=== PATIENT | male | born 1965 | race Native Hawaiian/Other Pacific Islander ===

== ENCOUNTER 2020-04-20 17:13 | Emergency (ER) | payer OTHER, MEDICAID, SELFPAY ==
[2020-04-20 17:19] VITALS: BP 158/88; PULSE 97; RESP 16; TEMP 36.5; O2SAT 100; BMI 25.8
--- NOTE | 2020-04-20 17:25 | DI.RAD.S_ITS ---
PROCEDURE: XR RIBS BI MIN 4V W CXR1V INDICATIONS: SOB, rib pain. History of chest trauma TECHNIQUE: 2 views of the left and right ribs were acquired, along with a single view chest. COMPARISON: None. FINDINGS: Surgical changes and devices: None. Bones and chest wall: Right left 5th rib fracture although radiographically the appearance is chronic. Lungs and pleura: No pleural effusions or pneumothorax. Lungs appear clear. Mediastinum: Mediastinal contours appear normal. Heart size is normal. IMPRESSION: No definite acute rib fracture radiographically identified. Chronic appearing right 5th rib fracture. Dictated by: Familia Astudillo M.D. on 04/20/2020 at 17:51 Approved by: Familia Astudillo M.D. on 04/20/2020 at 17:53
--- NOTE | 2020-04-20 21:37 | ED.SOB ---
HPI - SOB/Dyspnea General Chief Complaint: Shortness of Breath/Dyspnea Stated Complaint: SOB Time Seen by Provider: 04/20/20 21:37 Source: patient Mode of arrival: Ambulatory Limitations: no limitations History of Present Illness HPI Narrative: 54-year-old male former smoker with noncontributory medical history presents with a chief complaint of difficulty in breathing for approximately 1 month. He denies much in the way of provocation or palliation but states that her 22 takes a deep breath. He denies any history of blood clot recent injury or known cancer. He denies any fever chills nor runny nose, sore throat or cough. He denies any nausea, vomiting or diarrhea. MD Complaint: shortness of breath Onset (ago): month(s) Severity: moderate Consistency/Duration: constant Relieving factors: nothing Exacerbating factors: nothing Associated symptoms: denies other symptoms Treatment prior to arrival: none Related Data Home Medications Medication Instructions Recorded Confirmed acetaminophen 325 mg PO #0 09/05/16 aspirin 325 mg PO QDAY #0 09/05/16 ibuprofen [Advil Liqui-Gel] 200 mg PO #0 09/05/16 oxycodone-acetaminophen [Percocet] 1 tab PO Q4HP PRN #0 09/05/16 Previous Rx's Medication Instructions Recorded doxycycline hyclate 100 mg PO Q12H #20 cap 05/20/16 levofloxacin [Levaquin] 500 mg PO QDAY 10 Days #0 tab 05/22/16 clindamycin HCl 300 mg PO Q6H #28 cap 10/17/16 ketorolac 10 mg PO Q6H PRN #14 tab 04/20/20 Allergies Allergy/AdvReac Type Severity Reaction Status Date / Time No Known Drug Allergies Allergy Verified 04/20/20 17:23 Review of Systems Constitutional Constitutional: Denies chills, Denies fatigue, Denies fever(s), Denies frequent falls, Denies lethargy and Denies weakness Eyes Eyes: Denies change in vision, Denies eye discharge, Denies irritation and Denies loss of vision ENT Ears, Nose, Mouth, and Throat: Denies change in voice, Denies dizziness, Denies neck pain, Denies sore throat and Denies throat swelling Cardiovascular Cardiovascular: Reports chest pain, Denies irregular heart rhythm, Denies lightheadedness, Denies palpitations, Reports dyspnea, Denies dyspnea on exertion and Denies orthopnea Respiratory Respiratory: Denies cough, Reports dyspnea, Denies dyspnea on exertion and Denies wheezing Gastrointestinal Gastrointestinal: Denies abdominal pain, Denies change in bowel habits, Denies diarrhea, Denies nausea and Denies vomiting Musculoskeletal Musculoskeletal: Denies neck pain and Denies numbness Integumentary/Breasts Skin/Breast: Denies pruritus, Denies erythema, Denies rash and Denies wounds Neurologic Neurologic: Denies behavioral changes, Denies confusion, Denies dizziness, Denies frequent falls, Denies loss of vision, Denies numbness and Denies weakness Psychiatric Psychiatric: Denies anxiety, Denies behavioral changes, Denies confusion, Denies depression, Denies homicidal ideation and Denies suicidal ideation Endocrine Endocrine: Denies fatigue, Denies flushing and Denies palpitations Hematologic/Lymphatic Hematologic/Lymphatic: Denies easy bruising Allergic/Immunologic Allergic/Immunologic: Denies urticaria, Denies throat swelling and Denies wheezing Patient History Social History Smoking Status: Current every day smoker Smoking Status: Current every day smoker alcohol intake frequency: a few times a month Substance Use Type: marijuana Exam Narrative Exam Narrative: GENERAL: [54] year old patient appears stated age. Well-nourished, well-developed patient, in mild distress. HEAD: Atraumatic. Normocephalic. EYES: Pupils equal round and reactive. Extraocular motions intact. No scleral icterus. No injection or drainage. ENT: Nose without bleeding, purulent drainage. Throat without erythema, tonsillar hypertrophy or exudate. Airway patent. NECK: Trachea midline. Non tender CARDIOVASCULAR: Regular rate and rhythm without murmurs, gallops, or rubs. RESPIRATORY: Clear to auscultation. Breath sounds equal bilaterally. No wheezes, rales, or rhonchi. GASTROINTESTINAL: Abdomen soft, non-tender, nondistended. EXTREMITIES: No edema or joint tenderness. BACK: Nontender without deformity or crepitance. No flank tenderness. NEURO: AOx3. SKIN: No rash or erythema of visible areas Initial Vital Signs Initial Vital Signs: Vital Signs Temperature 97.7 F 04/20/20 17:19 Pulse Rate 97 H 04/20/20 17:19 Respiratory Rate 16 07/23/20 17:19 Blood Pressure 158/88 H 04/20/20 17:19 Pulse Oximetry 100 04/20/20 17:19 Course Orders Ordered: ED Orders 04/20/20 17:25 XR ribs BI min 4V w CXR1V Stat 04/20/20 21:48 Consult to Respiratory Therapy Evaluate & Treat EKG-12 Lead Stat 04/20/20 22:30 Basic Metabolic Panel Stat Complete Blood Count AUTO DIFF Stat D Dimer Stat Magnesium Stat Procalcitonin Stat Troponin & CK Cardiac Panel Stat 04/20/20 22:48 CT angio chest PE protocol Stat Discontinued Medications Ketorolac Tromethamine (Toradol) 15 mg IV NOW ONE Stop: 04/20/20 21:48 Last Admin: 04/20/20 22:19 Dose: Not Given Documented by: ALIVIA Ketorolac Tromethamine (Toradol) 60 mg IM NOW ONE Stop: 04/20/20 22:19 Last Admin: 04/20/20 22:40 Dose: 60 mg Documented by: CAL Vital Signs Vital signs: Vital Signs - 8 hr 04/21/20 00:41 Pulse Rate 88 Respiratory Rate 20 Blood Pressure 149/81 H Pulse Oximetry 96 MDM - SOB/Dyspnea Medical Records Attestation: I reviewed the patient's medical records. Lab Data Attestation: I reviewed the patient's lab results. Result diagrams: 04/20/20 22:30 04/20/20 22:30 Labs: Lab Results 04/20/20 04/20/20 04/20/20 Range/Units 22:30 22:30 22:30 WBC 14.5 H (4.5-11.0) X10^3/uL RBC 4.92 (4.5-5.9) X10^6/uL Hgb 11.7 L (13.5-17.5) g/dL Hct 36.0 L (41-53) % MCV 73.1 L (80-100) fL MCH 23.8 L (26-34) PG MCHC 32.5 (30-36) % RDW 18.6 H (11.6-14.8) % Plt Count 391 (150-400) X10^3/uL Neut % (Auto) 70.6 (50-75) % Lymph % (Auto) 15.5 L (25-40) % Ventura % (Auto) 10.9 (3-14) % Eos % (Auto) 2.5 (2-4) % Baso % (Auto) 0.5 (0-2) % Neut # (Auto) 42545 H (5561-5673) /uL Lymph # (Auto) 2200 (1921-8612) /uL Ventura # (Auto) 1600 H (0-900) /uL Eos # (Auto) 400 (0-450) /uL Baso # (Auto) 100 (0-100) /uL D-Dimer 973 H (<230) ng/mL Sodium 134 L (137-145) mmol/L Potassium 4.1 (3.4-5.1) mmol/L Chloride 99 (98-107) mmol/L Carbon Dioxide 28 (22-32) mmol/L BUN 15 (9-20) mg/dL Creatinine 0.70 (0.66-1.25) mg/dL Estimated GFR > 60.0 (>60) mL/min BUN/Creatinine Ratio 21.4 (6-22) Glucose 115 H (70-100) mg/dL Calcium 9.5 (8.4-10.2) mg/dL Magnesium 1.9 (1.6-2.3) mg/dL Total Creatine Kinase 49 L (55-170) U/L CK-MB (CK-2) TNP CK-MB (CK-2) Rel Index TNP Troponin I < 0.012 (0.01-0.034) ng/mL Procalcitonin (<0.5) ng/mL 04/20/20 Range/Units 22:30 WBC (4.5-11.0) X10^3/uL RBC (4.5-5.9) X10^6/uL Hgb (13.5-17.5) g/dL Hct (41-53) % MCV (80-100) fL MCH (26-34) PG MCHC (30-36) % RDW (11.6-14.8) % Plt Count (150-400) X10^3/uL Neut % (Auto) (50-75) % Lymph % (Auto) (25-40) % Ventura % (Auto) (3-14) % Eos % (Auto) (2-4) % Baso % (Auto) (0-2) % Neut # (Auto) (4725-2419) /uL Lymph # (Auto) (9430-9308) /uL Ventura # (Auto) (0-900) /uL Eos # (Auto) (0-450) /uL Baso # (Auto) (0-100) /uL D-Dimer (<230) ng/mL Sodium (137-145) mmol/L Potassium (3.4-5.1) mmol/L Chloride (98-107) mmol/L Carbon Dioxide (22-32) mmol/L BUN (9-20) mg/dL Creatinine (0.66-1.25) mg/dL Estimated GFR (>60) mL/min BUN/Creatinine Ratio (6-22) Glucose (70-100) mg/dL Calcium (8.4-10.2) mg/dL Magnesium (1.6-2.3) mg/dL Total Creatine Kinase (55-170) U/L CK-MB (CK-2) CK-MB (CK-2) Rel Index Troponin I (0.01-0.034) ng/mL Procalcitonin 0.68 H (<0.5) ng/mL Imaging Data Chest x-ray: Radiologist's Impression: Carlyle Mccarty 54 M 1965 [place] [address] XRay Report Signed Patient: Carlyle Mccarty [facility]#: [id number] : 1965Acct:[id number] Age/Sex: 54 / MDate of Service: 04/20/20 Loc: ED Accession Number: [id number] Procedure: XR ribs BI min 4V w CXR1V Ordering Provider: Chandan Gillespie MD PROCEDURE: XR RIBS BI MIN 4V W CXR1V INDICATIONS: SOB, rib pain. History of chest trauma TECHNIQUE: 2 views of the left and right ribs were acquired, along with a single view chest. COMPARISON: None. FINDINGS: Surgical changes and devices: None. Bones and chest wall: Right left 5th rib fracture although radiographically the appearance is chronic. Lungs and pleura: No pleural effusions or pneumothorax. Lungs appear clear. Mediastinum: Mediastinal contours appear normal. Heart size is normal. IMPRESSION: No definite acute rib fracture radiographically identified. Chronic appearing right 5th rib fracture. Dictated by: Familia Astudillo M.D. on 04/20/2020 at 17:51 Approved by: Familia Astudillo M.D. on 04/20/2020 at 17:53 CT scan - chest: Radiologist's Impression: NO PE, NO PTX, NO PNA Discharge Plan Departure Patient Disposition: Home Clinical Impression: Atypical chest pain Discharge Date/Time: 04/21/20 00:41 Instructions: DI for Atypical Chest Pain Activity Restrictions/Additional Instructions: *You have been diagnosed with [atypical chest pain] *What to do: *Take medications as directed: *Follow up with your primary care provider in 2-3 days, call for an appointment. Let them know you were seen in the Emergency Department and that we ask that you be seen in follow up. CT did note some changes in your liver which may be consistent with a chronic problem called cirrhosis. Your doctor can help you get this further evaluated *Return to ER if you should have any new, worsening or concerning symptoms, Prescriptions: New ketorolac 10 mg tablet 10 mg PO Q6H PRN (Reason: pain) Qty: 14 RF: 0 No Action doxycycline hyclate 100 MG capsule 100 mg PO Q12H Qty: 20 RF: 0 levofloxacin [Levaquin] 500 MG tablet 500 mg PO QDAY 10 Days Qty: 0 RF: 0 acetaminophen 325 MG tablet 325 mg PO Qty: 0 RF: 0 aspirin 325 MG tablet 325 mg PO QDAY Qty: 0 RF: 0 ibuprofen [Advil Liqui-Gel] 200 MG capsule 200 mg PO Qty: 0 RF: 0 oxycodone-acetaminophen [Percocet] 5 MG/325 MG tablet 1 tab PO Q4HP PRNQty: 0 RF: 0 clindamycin HCl 300 MG capsule 300 mg PO Q6H Qty: 28 RF: 0 Referrals: [facility] [Outside]
[2020-04-20] MEDS: KETOROLAC 60 MG/2 ML VIAL IM (22:40)
[2020-04-20 22:46] LABS: D Dimer 973 ng/mL (<230)
[2020-04-20 22:47] LABS: Add Manual Diff / Slide Review NO; BUN Creatinine Ratio 21.4 (6-22); Basophils Absolute Auto 100 /uL (0-100); Basophils Percent Auto 0.5 % (0-2); Blood Urea Nitrogen 15 mg/dL (9-20); Calcium 9.5 mg/dL (8.4-10.2); Carbon Dioxide 28 mmol/L (22-32); Chloride 99 mmol/L (98-107); Creatine Kinase 49 U/L (55-170); Eosinophils Absolute Auto 400 /uL (0-450); Eosinophils Percent Auto 2.5 % (2-4); Estimated Glomerular Filt Rate > 60.0 mL/min (>60); Glucose 115 mg/dL (70-100); HEMOLYSIS < 15 (0-50); Hemoglobin 11.7 g/dL (13.5-17.5); Lymphocytes Absolute Auto 2200 /uL (1100-4500); Lymphocytes Percent Auto 15.5 % (25-40); Magnesium 1.9 mg/dL (1.6-2.3); Mean Corpuscular HGB Conc 32.5 % (30-36); Mean Corpuscular Hemoglobin 23.8 PG (26-34); Mean Corpuscular Volume 73.1 fL (80-100); Monocytes Absolute Auto 1600 /uL (0-900); Monocytes Percent Auto 10.9 % (3-14); Neutrophils Absolute Auto 10300 /uL (1500-7000); Neutrophils Percent Auto 70.6 % (50-75); Platelet Count 391 X10^3/uL (150-400); Potassium 4.1 mmol/L (3.4-5.1); Red Blood Cell Count 4.92 X10^6/uL (4.5-5.9); Red Cell Distribution Width 18.6 % (11.6-14.8); Sodium 134 mmol/L (137-145); White Blood Cell Count 14.5 X10^3/uL (4.5-11.0)
--- NOTE | 2020-04-20 22:48 | DI.CT.S_ITS ---
PROCEDURE: CT ANGIO CHEST PE PROTOCOL INDICATIONS: SOB, chest pain, critical DDimer TECHNIQUE: After the administration of intravenous contrast, 2 mm thick sections acquired from the pulmonary apices to the posterior costophrenic angles. 3-dimensional maximum intensity projection (MIP) coronal and sagittal reformats were then acquired through the thorax. For radiation dose reduction, the following was used: automated exposure control, adjustment of mA and/or kV according to patient size. COMPARISON: None. FINDINGS: Image quality: Excellent. Pulmonary arteries: Pulmonary arteries are normal in size, and demonstrate no intraluminal filling defects to suggest central pulmonary embolism. Lungs and pleura: Atelectasis noted in the dependent portions of the lung bases. Emphysematous changes noted in the lung apices. No pleural effusions or pneumothorax. Central and peripheral airways are patent. Mediastinum: Heart size is normal, without pericardial effusion. No mediastinal or hilar adenopathy. Thoracic aorta is normal in caliber and enhancement. Esophagus is normal in caliber, without hiatal hernia. Bones and chest wall: No suspicious bony lesions. Ribs and thoracic spine appear intact throughout. Spine degenerative disc disease and facet arthropathy. Thyroid gland is normal. No axillary or supraclavicular adenopathy. Abdomen: Liver has nodular margins suggestive of hepatic cirrhosis. Trace ascites noted adjacent to the visualized liver. There are areas of heterogeneous enhancement in the right lobe of the liver. Enlarged peripancreatic and periportal lymph nodes noted. IMPRESSION: 1. No pulmonary embolus. 2. No lung consolidation or pleural effusions. 3. Cirrhotic appearing liver. Recommend correlation with clinical laboratory data. Multiple areas of heterogeneous enhancement involving the right lobe of the liver. Hepatic malignancy is not excluded. Recommend on MRI of the abdomen with and without contrast (hepatic protocol) for definitive characterization when clinically feasible. 3. Periportal and peripancreatic retroperitoneal lymphadenopathy which could be reactive or neoplastic including metastatic disease Dictated by: Ellie Mccray MD, PhD on 04/21/2020 at 7:11 Approved by: Ellie Mccray MD, PhD on 04/21/2020 at 7:15
[2020-04-20 22:59] LABS: Troponin I < 0.012 ng/mL (0.01-0.034)
[2020-04-20 23:39] LABS: Procalcitonin 0.68 ng/mL (<0.5)
[2020-04-21 00:41] VITALS: BP 149/81; PULSE 88; RESP 20; O2SAT 96
== END 2020-04-21 00:41 | disposition home or self-care (01) ==
PROVIDERS: Emergency Provider Emergency Medicine
DX: R07.89 Other chest pain (principal); R07.81 Pleurodynia; R06.02 Shortness of breath
CPT/HCPCS: 36415; 71111; 71275; 80048; 82550; 83735; 84145; 84484; 85025; 85379; 93005; 96372; 99284; J1885; Q9967

== ENCOUNTER → 2020-05-23 16:27 | Outpatient (CLI) | payer OTHER, MEDICAID, SELFPAY ==
[2020-05-23 16:50] LABS: Hematocrit 32.5 % (41-53); Hemoglobin 10.5 g/dL (13.5-17.5); Mean Corpuscular HGB Conc 32.3 % (30-36); Mean Corpuscular Hemoglobin 23.6 PG (26-34); Mean Corpuscular Volume 73.2 fL (80-100); Platelet Count 456 X10^3/uL (150-400); Red Blood Cell Count 4.44 X10^6/uL (4.5-5.9); Red Cell Distribution Width 19.8 % (11.6-14.8); White Blood Cell Count 17.5 X10^3/uL (4.5-11.0)
[2020-05-23 17:00] LABS: Reticulocyte Count, Percent 1.5 % (0.87-2.60)
[2020-05-23 17:07] LABS: Alanine Aminotransferase 155 IU/L (<50); Albumin 3.4 g/dL (3.5-5.0); Albumin Globulin Ratio 0.7 (1.0-2.8); Alkaline Phosphatase 800 U/L (38-126); Amylase 43 U/L (30-110); Aspartate Aminotransferase 323 IU/L (17-59); Bilirubin Unconjugated 0.4 mg/dL (0.0-1.1); Creatine Kinase 353 U/L (55-170); Globulin 4.9 g/dL (1.7-4.1); HEMOLYSIS < 15 (0-50); Iron 28 ug/dL (49-181); Lipase 122 U/L (23-300); Total Protein 8.3 g/dL (6.3-8.2)
[2020-05-23 17:15] LABS: Neutrophils Absolute Manual 13475 /uL (3000-5900); Total Cells Counted 100
[2020-05-23 17:16] LABS: Hypochromasia 1+; Microcytosis 1+
[2020-05-23 17:17] LABS: Percent Iron Saturation 10 % (20-50); Total Iron Binding Capacity 271 ug/dL (261-462); Transferrin 191 mg/dL (206-381)
[2020-05-23 17:37] LABS: TSH w/ Reflex to FT4 4.37 uIU/mL (0.47-4.68)
[2020-05-24 04:36] LABS: Ceruloplasmin 50.3 mg/dL (16.0-31.0)
[2020-05-24 05:38] LABS: Hepatitis B Surf Ab Qualitativ Non Reactive (.)
[2020-05-24 15:45] LABS: Ethanol (ETOH) < 10 mg/dL
[2020-05-24 16:36] LABS: ANA Screen, IFA Negative (.)
[2020-05-25 13:18] LABS: Smooth Muscle Antibody 12 Units (0-19)
[2020-05-25 17:01] LABS: Hep C Virus Ab w/Reflex Quant REACTIVE s/c (NEGATIVE)
[2020-05-25 17:42] LABS: Hepatitis B Surface Antigen NEGATIVE s/c (NEGATIVE)
[2020-05-26 04:39] LABS: Deamidated Gliadin IgA 6 units (0-19); Deamidated Gliadin IgG 2 units (0-19); IGA 484 mg/dL (90-386); t-Transglutaminase IgA <2 U/mL (0-3)
[2020-05-31 09:08] LABS: HCV Genotype 1b (.); HCV LOG 10 6.236 (.)
== END ==
PROVIDERS: PCP Internal Medicine; Referring Provider Internal Medicine; Visit Provider Internal Medicine
DX: D50.9 Iron deficiency anemia, unspecified (principal); D72.829 Elevated white blood cell count, unspecified; I10 Essential (primary) hypertension; K74.60 Unspecified cirrhosis of liver; R74.0 Nonspecific elevation of levels of transaminase and lactic acid dehydrogenase [LDH]
CPT/HCPCS: 36415; 80076; 80320; 82150; 82390; 82550; 82784; 83516; 83540; 83550; 83690; 84443; 85025; 85045; 86038; 86706; 86803; 87340; 87522

== ENCOUNTER 2020-05-26 14:05 | Emergency (ER) | payer OTHER, MEDICAID, SELFPAY ==
[2020-05-26] VITALS (7 sets, daily range): BP systolic 139–155; BP diastolic 70–89; PULSE 104–108; RESP 20–36; TEMP 36.9; O2SAT 98–100; BMI 25.0
--- NOTE | 2020-05-26 14:26 | ED_ITS ---
HPI - General Adult General Chief complaint: Shortness of Breath/Dyspnea Stated complaint: hard time breathing, stomach pains Time Seen by Provider: 05/26/20 14:26 History of Present Illness HPI narrative: 54-year-old gentleman with a history of hyperlipidemia, alcohol use disorder, liver cirrhosis, microcytic anemia and chronic leukocytosis hepatitis-C diagnosed 3 days ago and chronic shoulder pain presents with dyspnea and abdominal pain. He was seen by Dr. Villalta his newly established primary care physician 3 days ago and additional blood work was done including the serology to diagnose hepatitis-C. He was referred to gastroenterology earlier in the month and had a tele health visit but has not yet been seen and person. He states today he is having mid epigastric radiating into the right upper and middle quadrant pain. He complains that he is unable to void and he is co nstipated. He is obviously uncomfortable with tachypnea. He does state that he has been able to avoid alcohol for the last month. He continues to smoke tobacco and marijuana. He notes dyspnea chest pain radiating up from his distended abdomen, increasingly distended abdomen, chronic right upper quadrant abdominal pain, he reports no emesis and no black stools. He does report that he has been bruising easier and is fatigued. Patient apparently was taken to [facility] on May 13 by ambulance. At the time he had no specific complaints said he simply wanted to sleep no additional workup was done and patient was discharged Related Data Home Medications Medication Instructions Recorded Confirmed aspirin 81 mg tablet,delayed 81 mg PO DAILY 05/01/20 05/23/20 release Allergies Allergy/AdvReac Type Severity Reaction Status Date / Time lisinopril AdvReac Intermediate gas, Verified 05/26/20 14:34 cramping, dyspnea, near experience Review of Systems Review of Systems Narrative: Chronic right shoulder pain exacerbated with likely referred hepatic pain Remainder of review of systems including constitutional, ENT, cardiovascular, respiratory, GI, , musculoskeletal, skin, neurologic and psychiatric systems reviewed and are unremarkable except as noted in HPI. Patient History Medical History Cirrhosis of liver (Chronic) Essential hypertension (Chronic) Leukocytosis (Chronic) Microcytic anemia (Chronic) Surgical History S/P right rotator cuff repair (Acute) Family History Father Diabetes mellitus Stroke Mother Mini stroke Hypertension Hyperlipidemia Social History Smoking Status: Current every day smoker substance use type: marijuana Smoking Status: Current every day smoker alcohol intake frequency: a few times a month Substance Use Type: marijuana Exam Narrative Exam Narrative: General: Moderately disheveled and generally unwell appearing with tachypnea but not using accessory muscles and able to speak in full sentences HEENT: Moist mucous membranes, jaundiced sclera with reactive pupils, Neck: No JVD, supple Respiratory: Lungs are clear to auscultation, no wheezing no rales no rhonchi. Full and symmetrical air movement Cardiac: Tachycardia with Regular rhythm no murmurs no bruits Abdomen: Distended, tender along the entire liver edge with hepatomegaly, developing guarding but no rebound. Bedside ultrasound shows a bladder with at least 400 cc an it Skin: Warm and dry, multiple bruises, slight jaundice Neurologic: Grossly neurologically intact with no obvious asymmetries or abnormalities Extremities: No trauma, well perfused Psych: Cognitively appropriate with no evidence of auditory or visual halluci nations Initial Vital Signs Initial Vital Signs: Vital Signs Temperature 98.4 F 05/26/20 14:28 Pulse Rate 108 H 05/26/20 14:28 Respiratory Rate 20 05/26/20 14:28 Blood Pressure 148/89 H 05/26/20 14:28 Pulse Oximetry 100 05/26/20 14:28 Course Orders Ordered: Discontinued Medications Hydromorphone HCl (Dilaudid) 1 mg IV NOW ONE Stop: 05/26/20 17:41 Last Admin: 05/26/20 18:13 Dose: 1 mg Documented by: NISHI Sodium Chloride (Normal Saline 0.9%) 1,000 mls @ 1,000 mls/hr IV BOLUS ONE Stop: 05/26/20 18:40 Last Infusion: 05/26/20 19:03 Dose: 1,000 mls/hr Documented by: Admin: 05/26/20 18:13 Dose: 1,000 mls/hr Documented by: NISHI Lorazepam (Ativan) 0.5 mg IV NOW ONE Stop: 05/26/20 17:41 Last Admin: 05/26/20 18:13 Dose: 0.5 mg Documented by: NISHI Nicotine (Nicoderm) 14 mg TOP NOW ONE Stop: 05/26/20 17:41 Last Admin: 05/26/20 18:13 Dose: 14 mg Documented by: NISHI Vital Signs Vital signs: Vital Signs - 8 hr 05/26/20 14:28 05/26/20 14:30 05/26/20 15:12 Temperature 98.4 F Pulse Rate 108 H 104 H Respiratory Rate 20 22 Blood Pressure 148/89 H 139/87 155/74 H Pulse Oximetry 100 100 05/26/20 17:06 Temperature Pulse Rate 104 H Respiratory Rate Blood Pressure Pulse Oximetry Medical Decision Making Medical Records Medical records reviewed: Yes I reviewed the patient's medical records. Lab Data Lab results reviewed: Yes I reviewed the patient's lab results. Lab results narrative: 05/23 labs Leukocytosis at 17.5, thrombocytosis at 456, hemoglobin 10.5 Significantly elevated transaminases with AST 323 ALT 155 alkaline phosphatase 800, total protein 8.3 Hep C testing done and is positive Result diagrams: 05/26/20 14:28 05/26/20 15:37 Labs: Lab Results 05/26/20 05/26/20 05/26/20 Range/Units 14:28 14:28 14:28 WBC 18.7 H (4.5-11.0) X10^3/uL RBC 3.65 L (4.5-5.9) X10^6/uL Hgb 8.9 L (13.5-17.5) g/dL Hct 26.9 L (41-53) % MCV 73.7 L (80-100) fL MCH 24.4 L (26-34) PG MCHC 33.1 (30-36) % RDW 20.1 H (11.6-14.8) % Plt Count 622 H (150-400) X10^3/uL Neut % (Auto) 77.9 H (50-75) % Lymph % (Auto) 14.6 L (25-40) % [place] % (Auto) 7.2 (3-14) % Eos % (Auto) 0.1 L (2-4) % Baso % (Auto) 0.2 (0-2) % Neut # (Auto) 32698 H (5449-2961) /uL Lymph # (Auto) 2700 (2164-9663) /uL [place] # (Auto) 1300 H (0-900) /uL Eos # (Auto) 0 (0-450) /uL Baso # (Auto) 0 (0-100) /uL RBC Morphology See below Anisocytosis 1+ H Microcytosis 1+ H PT (10.1-12.7) SECONDS INR (0.9-1.3) APTT (26.4-36.2) SECONDS Sodium 130 L (137-145) mmol/L Potassium 6.0 H (3.4-5.1) mmol/L Chloride 97 L (98-107) mmol/L Carbon Dioxide 20 L (22-32) mmol/L BUN 32 H (9-20) mg/dL Creatinine 0.97 (0.66-1.25) mg/dL Estimated GFR > 60.0 (>60) mL/min BUN/Creatinine Ratio 33.0 H (6-22) Glucose 133 H (70-100) mg/dL Lactate 3.6 H (0.7-2.1) mmol/L Calcium 9.3 (8.4-10.2) mg/dL Total Bilirubin 1.1 (0.2-1.3) mg/dL AST 800 H (17-59) IU/L ALT 246 H (<50) IU/L Alkaline Phosphatase 883 H (38-126) U/L Total Protein 8.8 H (6.3-8.2) g/dL Albumin 3.6 (3.5-5.0) g/dL Globulin 5.2 H (1.7-4.1) g/dL Albumin/Globulin Ratio 0.7 L (1.0-2.8) Urine Color Urine Appearance Urine pH (4.5-8.0) Ur Specific [place] (1.000-1.035) Urine Protein (Negative) Urine Glucose (UA) (Negative) g/dL Urine Ketones (NEGATIVE) Urine Occult Blood (Negative) Urine Nitrate (Negative) Urine Bilirubin (NEGATIVE) Urine Urobilinogen (0.2) E.U./dL Ur Leukocyte Esterase (NEGATIVE) Urine RBC (0-5/HPF) Urine WBC (0-5/HPF) Urine Bacteria (None) Hyaline Casts (None) Ur Culture Indicated? 05/26/20 05/26/20 05/26/20 Range/Units 14:28 15:20 15:37 WBC (4.5-11.0) X10^3/uL RBC (4.5-5.9) X10^6/uL Hgb (13.5-17.5) g/dL Hct (41-53) % MCV (80-100) fL MCH (26-34) PG MCHC (30-36) % RDW (11.6-14.8) % Plt Count (150-400) X10^3/uL Neut % (Auto) (50-75) % Lymph % (Auto) (25-40) % [place] % (Auto) (3-14) % Eos % (Auto) (2-4) % Baso % (Auto) (0-2) % Neut # (Auto) (2533-3671) /uL Lymph # (Auto) (0502-3169) /uL [place] # (Auto) (0-900) /uL Eos # (Auto) (0-450) /uL Baso # (Auto) (0-100) /uL RBC Morphology Anisocytosis Microcytosis PT 15.1 H (10.1-12.7) SECONDS INR 1.3 (0.9-1.3) APTT 30 (26.4-36.2) SECONDS Sodium (137-145) mmol/L Potassium 5.7 H (3.4-5.1) mmol/L Chloride (98-107) mmol/L Carbon Dioxide (22-32) mmol/L BUN (9-20) mg/dL Creatinine (0.66-1.25) mg/dL Estimated GFR (>60) mL/min BUN/Creatinine Ratio (6-22) Glucose (70-100) mg/dL Lactate (0.7-2.1) mmol/L Calcium (8.4-10.2) mg/dL Total Bilirubin (0.2-1.3) mg/dL AST (17-59) IU/L ALT (<50) IU/L Alkaline Phosphatase (38-126) U/L Total Protein (6.3-8.2) g/dL Albumin (3.5-5.0) g/dL Globulin (1.7-4.1) g/dL Albumin/Globulin Ratio (1.0-2.8) Urine Color Yellow Urine Appearance Clear Urine pH 5.0 (4.5-8.0) Ur Specific [place] >=1.030 H (1.000-1.035) Urine Protein Trace H (Negative) Urine Glucose (UA) Negative (Negative) g/dL Urine Ketones Negative (NEGATIVE) Urine Occult Blood Negative (Negative) Urine Nitrate Negative (Negative) Urine Bilirubin Negative (NEGATIVE) Urine Urobilinogen 0.2 (0.2) E.U./dL Ur Leukocyte Esterase Negative (NEGATIVE) Urine RBC None seen (0-5/HPF) Urine WBC None seen (0-5/HPF) Urine Bacteria None seen (None) Hyaline Casts 5-10/lpf (None) Ur Culture Indicated? Cult not indicated 05/26/20 Range/Units 17:07 WBC (4.5-11.0) X10^3/uL RBC (4.5-5.9) X10^6/uL Hgb (13.5-17.5) g/dL Hct (41-53) % MCV (80-100) fL MCH (26-34) PG MCHC (30-36) % RDW (11.6-14.8) % Plt Count (150-400) X10^3/uL Neut % (Auto) (50-75) % Lymph % (Auto) (25-40) % [place] % (Auto) (3-14) % Eos % (Auto) (2-4) % Baso % (Auto) (0-2) % Neut # (Auto) (1678-8691) /uL Lymph # (Auto) (7933-8886) /uL [place] # (Auto) (0-900) /uL Eos # (Auto) (0-450) /uL Baso # (Auto) (0-100) /uL RBC Morphology Anisocytosis Microcytosis PT (10.1-12.7) SECONDS INR (0.9-1.3) APTT (26.4-36.2) SECONDS Sodium (137-145) mmol/L Potassium (3.4-5.1) mmol/L Chloride (98-107) mmol/L Carbon Dioxide (22-32) mmol/L BUN (9-20) mg/dL Creatinine (0.66-1.25) mg/dL Estimated GFR (>60) mL/min BUN/Creatinine Ratio (6-22) Glucose (70-100) mg/dL Lactate 2.8 H (0.7-2.1) mmol/L Calcium (8.4-10.2) mg/dL Total Bilirubin (0.2-1.3) mg/dL AST (17-59) IU/L ALT (<50) IU/L Alkaline Phosphatase (38-126) U/L Total Protein (6.3-8.2) g/dL Albumin (3.5-5.0) g/dL Globulin (1.7-4.1) g/dL Albumin/Globulin Ratio (1.0-2.8) Urine Color Urine Appearance Urine pH (4.5-8.0) Ur Specific [place] (1.000-1.035) Urine Protein (Negative) Urine Glucose (UA) (Negative) g/dL Urine Ketones (NEGATIVE) Urine Occult Blood (Negative) Urine Nitrate (Negative) Urine Bilirubin (NEGATIVE) Urine Urobilinogen (0.2) E.U./dL Ur Leukocyte Esterase (NEGATIVE) Urine RBC (0-5/HPF) Urine WBC (0-5/HPF) Urine Bacteria (None) Hyaline Casts (None) Ur Culture Indicated? 04/21/2020 Chest CTA FINDINGS: Image quality: Excellent. Pulmonary arteries: Pulmonary arteries are normal in size, and demonstrate no intraluminal filling defects to suggest central pulmonary embolism. Lungs and pleura: Atelectasis noted in the dependent portions of the lung bases. Emphysematous changes noted in the lung apices. No pleural effusions or pneumothorax. Central and peripheral airways are patent. Mediastinum: Heart size is normal, without pericardial effusion. No mediastinal or hilar adenopathy. Thoracic aorta is normal in caliber and enhancement. Esophagus is normal in caliber, without hiatal hernia. Bones and chest wall: No suspicious bony lesions. Ribs and thoracic spine appear intact throughout. Spine degenerative disc disease and facet arthropathy. Thyroid gland is normal. No axillary or supraclavicular adenopathy. Abdomen: Liver has nodular margins suggestive of hepatic cirrhosis. Trace ascites noted adjacent to the visualized liver. There are areas of heterogeneous enhancement in the right lobe of the liver. Enlarged peripancreatic and periportal lymph nodes noted. IMPRESSION: 1. No pulmonary embolus. 2. No lung consolidation or pleural effusions. 3. Cirrhotic appearing liver. Recommend correlation with clinical laboratory data. Multiple areas of heterogeneous enhancement involving the right lobe of the liver. Hepatic malignancy is not excluded. Recommend on MRI of the abdomen with and without contrast (hepatic protocol) for definitive characterization when clinically feasible. 3. Periportal and peripancreatic retroperitoneal lymphadenopathy which could be reactive or neoplastic including metastatic disease Dictated by: Ellie Mccray MD, PhD on 04/21/2020 at 7:11 Imaging Data Chest x-ray: Radiologist's Impression: FINDINGS: Surgical changes and devices: None. Lungs and pleura: The lungs are hypoexpanded. Streaky atelectasis in the right perihilar lung and bilateral lung bases. No focal consolidation. No pleural effusion or pneumothorax. Mediastinum: Mediastinal contours are normal. Heart size is normal. Bones and chest wall: No suspicious bony abnormalities. Soft tissues appear unremarkable. IMPRESSION: Hypoexpanded lungs with atelectasis. No acute finding. Dictated by: Justin Head M.D. on 05/26/2020 at 15:10 CT scan - abdomen/pelvis: Radiologist's Impression: FINDINGS: Image quality: Excellent. ABDOMEN: Lung bases: Pectus is present at the right lung base. No pleural effusion. Heart is normal size. There is a moderate-sized hiatal hernia. Solid organs: Multiple hypodense lesions are visualized throughout the liver. The lesions at the edge of the hepatic capsule have an exophytic appearance. The central bile duct at the level of the ampulla appears nondilated; however more superiorly and within the liver there is likely severe bile duct dilatation. A transition point is not well characterized. The gallbladder is mildly contracted and hyperdense sugges ting the presence of sludge or vicarious excretion of contrast. No adrenal nodules. The kidneys demonstrate symmetric size and enhancement. No hydronephrosis. The pancreas demonstrates normal size and enhancement. The spleen demonstrates normal size and enhancement. Enhancing soft tissue is noted along the inferior margin of the liver suggesting peritoneal carcinomatosis. There is a small amount of low-density ascites within the abdomen and pelvis. Peritoneum and bowel: Bowel loops demonstrate normal wall thickness and caliber. The appendix is thin walled and gas filled. No free fluid or air. Nodes and vessels: No retroperitoneal or mesenteric adenopathy by size criteria. Aorta and inferior vena cava are normal in size. There are scattered atheromatous calcifications throughout the aorta and iliac arteries bilaterally. Miscellaneous: No ventral hernias. PELVIS: Genitourinary: Bladder wall thickness is normal. Miscellaneous: No inguinal hernias or adenopathy. Bones: No suspicious bony lesions. No vertebral body compression fractures. IMPRESSION: 1. Innumerable hypodense mass lesions throughout the liver suspicious for diffuse hepatic metastasis. 2. Probable biliary obstruction within the midportion of the extrahepatic bile duct. No discrete mass or stone is visualized centrally. 3. Findings suspicious for peritoneal carcinomatosis at the inferior margin of the liver. Please note, differential considerations include hepatocellular carcinoma, biliary neoplasm, pancreatic adenocarcinoma, and metastatic colonic neoplasm. If c linically indicated, a hepatic lesion is likely amenable to ultrasound-guided percutaneous biopsy. These findings were discussed with Dr. Cody at 3:54 p.m. PST on May 26, 2020. Dictated by: Linda Tay M.D. on 05/26/2020 at 14:47 ECG Data Attestation: I personally reviewed and interpreted this ECG as follows: Interpretation: Sinus tachycardia at 107 Normal intervals, normal axis No acute ischemic changes MDM Narrative Medical decision making narrative: 54-year-old gentleman with hepatitis-C hepatomegaly cirrhosis history of alcohol use disorder hypertension now reestablishing care. Labs reviewed his white count continues to increase H&H continue to decrease and his thrombo cytosis is worse as well. Moderate ascites seen on bedside ultrasound along with urinary distention and acute urinary retention. Will have a Multani placed and see if this helps with some of the abdominal pain he is experiencing while were waiting for chemistries to return Hyperkalemia at 6.0 with normal renal function and no acute EKG changes. Repeat lab is 5.7 5:07 Care is reviewed with Dr Lopez, oncology to seek his recommendations on next steps in management for this unfortunate gentleman. His recommendation is hos pitalization for facilitated workup and directed biopsy. If patient is able to be admitted at [facility] serum tumor markers will be ordered by Dr. Reddy and he will see the patient after biopsy has been done 5:37 reviewed concerns and plan with patient and his sister. Questions were answered. Requested help with pain concern we do that. Also wanted to go out to smoke offered anxiolytics as well as a nicotine patch. Discussed code status. If not entirely clear that he understands questions and concepts. Initially he says he would not want to have CPR and would want to occur naturally. When reviewing to clarify, he says that he would want to have chest compressions done. At this time until we can fully clarify is actually understanding, we will leave him as a full code. When we have bed number BLS transport will be arranged Discharge Plan Departure Patient Disposition: [facility] Clinical Impression: Abdominal carcinomatosis, Cancer, metastatic to liver Hepatitis C Qualifiers: Viral hepatitis chronicity: acute Hepatic coma status: without hepatic coma Qualified Code(s): B17.10 - Acute hepatitis C without hepatic coma Cirrhosis of liver Qualifiers: Hepatic cirrhosis type: unspecified hepatic cirrhosis Ascites presence: with ascites Qualified Code(s): K74.60 - Unspecified cirrhosis of liver Discharge Date/Time: 05/26/20 19:06 Prescriptions: No Action aspirin 81 mg tablet,delayed release (DR/EC) 81 mg PO DAILY RF: 0 Referrals: Chandan Villalta MD [Primary Care Provider] -
--- NOTE | 2020-05-26 14:52 | DI.RAD.S_ITS ---
PROCEDURE: XR CHEST 2V INDICATIONS: shortness of breath TECHNIQUE: 2 views of the chest were acquired. COMPARISON: [facility], CT, CT ANGIO CHEST PE PROTOCOL, 04/20/2020, 22:47. FINDINGS: Surgical changes and devices: None. Lungs and pleura: The lungs are hypoexpanded. Streaky atelectasis in the right perihilar lung and bilateral lung bases. No focal consolidation. No pleural effusion or pneumothorax. Mediastinum: Mediastinal contours are normal. Heart size is normal. Bones and chest wall: No suspicious bony abnormalities. Soft tissues appear unremarkable. IMPRESSION: Hypoexpanded lungs with atelectasis. No acute finding. Dictated by: Justin Head M.D. on 05/26/2020 at 15:10 Approved by: Justin Head M.D. on 05/26/2020 at 15:11
[2020-05-26 14:59] LABS: Add Manual Diff / Slide Review NO; Basophils Absolute Auto 0 /uL (0-100); Basophils Percent Auto 0.2 % (0-2); Eosinophils Absolute Auto 0 /uL (0-450); Eosinophils Percent Auto 0.1 % (2-4); Hematocrit 26.9 % (41-53); Hemoglobin 8.9 g/dL (13.5-17.5); Lymphocytes Absolute Auto 2700 /uL (1100-4500); Lymphocytes Percent Auto 14.6 % (25-40); Mean Corpuscular HGB Conc 33.1 % (30-36); Mean Corpuscular Hemoglobin 24.4 PG (26-34); Mean Corpuscular Volume 73.7 fL (80-100); Monocytes Absolute Auto 1300 /uL (0-900); Monocytes Percent Auto 7.2 % (3-14); Neutrophils Absolute Auto 14600 /uL (1500-7000); Neutrophils Percent Auto 77.9 % (50-75); Platelet Count 622 X10^3/uL (150-400); Red Blood Cell Count 3.65 X10^6/uL (4.5-5.9); Red Cell Distribution Width 20.1 % (11.6-14.8); White Blood Cell Count 18.7 X10^3/uL (4.5-11.0)
[2020-05-26 15:04] LABS: Alanine Aminotransferase 246 IU/L (<50); Albumin 3.6 g/dL (3.5-5.0); Albumin Globulin Ratio 0.7 (1.0-2.8); Alkaline Phosphatase 883 U/L (38-126); Bilirubin Total 1.1 mg/dL (0.2-1.3); Blood Urea Nitrogen 32 mg/dL (9-20); Calcium 9.3 mg/dL (8.4-10.2); Carbon Dioxide 20 mmol/L (22-32); Chloride 97 mmol/L (98-107); Estimated Glomerular Filt Rate > 60.0 mL/min (>60); Globulin 5.2 g/dL (1.7-4.1); Glucose 133 mg/dL (70-100); HEMOLYSIS < 15 (0-50); Sodium 130 mmol/L (137-145); Total Protein 8.8 g/dL (6.3-8.2)
[2020-05-26 15:05] LABS: Lactate (Lactic Acid) 3.6 mmol/L (0.7-2.1)
[2020-05-26 15:12] LABS: Aspartate Aminotransferase 800 IU/L (17-59)
--- NOTE | 2020-05-26 15:17 | DI.CT.S_ITS ---
PROCEDURE: CT ABDOMEN PELVIS W CON INDICATIONS: hepatomegly, abdominal pain TECHNIQUE: After the administration of intravenous contrast, 5 mm thick sections acquired from the diaphragm to the symphysis. 5 mm coronal and sagittal reformats were acquired. For radiation dose reduction, the following was used: automated exposure control, adjustment of mA and/or kV according to patient size. COMPARISON: [facility], CT, CT ANGIO CHEST PE PROTOCOL, 04/20/2020, 22:47. FINDINGS: Image quality: Excellent. ABDOMEN: Lung bases: Pectus is present at the right lung base. No pleural effusion. Heart is normal size. There is a moderate-sized hiatal hernia. Solid organs: Multiple hypodense lesions are visualized throughout the liver. The lesions at the edge of the hepatic capsule have an exophytic appearance. The central bile duct at the level of the ampulla appears nondilated; however more superiorly and within the liver there is likely severe bile duct dilatation. A transition point is not well characterized. The gallbladder is mildly contracted and hyperdense suggesting the presence of sludge or vicarious excretion of contrast. No adrenal nodules. The kidneys demonstrate symmetric size and enhancement. No hydronephrosis. The pancreas demonstrates normal size and enhancement. The spleen demonstrates normal size and enhancement. Enhancing soft tissue is noted along the inferior margin of the liver suggesting peritoneal carcinomatosis. There is a small amount of low-density ascites within the abdomen and pelvis. Peritoneum and bowel: Bowel loops demonstrate normal wall thickness and caliber. The appendix is thin walled and gas filled. No free fluid or air. Nodes and vessels: No retroperitoneal or mesenteric adenopathy by size criteria. Aorta and inferior vena cava are normal in size. There are scattered atheromatous calcifications throughout the aorta and iliac arteries bilaterally. Miscellaneous: No ventral hernias. PELVIS: Genitourinary: Bladder wall thickness is normal. Miscellaneous: No inguinal hernias or adenopathy. Bones: No suspicious bony lesions. No vertebral body compression fractures. IMPRESSION: 1. Innumerable hypodense mass lesions throughout the liver suspicious for diffuse hepatic metastasis. 2. Probable biliary obstruction within the midportion of the extrahepatic bile duct. No discrete mass or stone is visualized centrally. 3. Findings suspicious for peritoneal carcinomatosis at the inferior margin of the liver. Please note, differential considerations include hepatocellular carcinoma, biliary neoplasm, pancreatic adenocarcinoma, and metastatic colonic neoplasm. If clinically indicated, a hepatic lesion is likely amenable to ultrasound-guided percutaneous biopsy. These findings were discussed with Dr. Cody at 3:54 p.m. PST on May 26, 2020. Dictated by: Linda Tay M.D. on 05/26/2020 at 14:47 Approved by: Linda Tay M.D. on 05/26/2020 at 14:59
[2020-05-26 15:21] LABS: INR 1.3 (0.9-1.3); Prothrombin Time 15.1 SECONDS (10.1-12.7)
[2020-05-26 15:24] LABS: Anisocytosis 1+; Microcytosis 1+; PTT Partial Thromboplastin Tim 30 SECONDS (26.4-36.2)
[2020-05-26 15:28] LABS: Appearance Urine UA CLEAR; Bacteria Urine None Seen; Bilirubin Urine UA NEGATIVE (NEGATIVE); Color Urine UA YELLOW; Glucose Urine UA NEGATIVE (Negative); Ketones Urine UA NEGATIVE (NEGATIVE); Leukocyte Esterase Urine UA NEGATIVE (NEGATIVE); Nitrite Urine UA NEGATIVE (Negative); Occult Blood Urine UA NEGATIVE (Negative); Protein Urine UA TRACE (Negative); RBC Urine None Seen (0-5/HPF); Specific Gravity Urine UA >=1.030 (1.000-1.035); Urobilinogen Urine UA 0.2 E.U./dL (0.2); WBC Urine None Seen (0-5/HPF)
[2020-05-26 15:33] LABS: Culture Indicated Urine Cult Not Indicated; Hyaline Casts Urine 5-10/LPF
[2020-05-26 15:53] LABS: HEMOLYSIS < 15 (0-50); Potassium 5.7 mmol/L (3.4-5.1)
[2020-05-26 16:56] LABS: Reflexed Lactate in 2 Hours Y
[2020-05-26 17:27] LABS: Lactate 2HR (Lactic Acid Rflx) 2.8 mmol/L (0.7-2.1)
[2020-05-26] MEDS: SODIUM CHLORIDE 0.9% 1,000 ML 1000 ML IV (18:13)
[2020-05-26] MEDS: NICOTINE 14 PATCH 14 MG TOP (18:13)
[2020-05-26] MEDS: LORazepam 2 MG/ML INJ 0.5 MG IV (18:13)
[2020-05-26] MEDS: HYDROMORPHONE 1 MG INJ IV (18:13)
--- NOTE | 2020-05-26 18:22 | PC.NURSE ---
pt medicated as per mdo
--- NOTE | 2020-05-26 18:50 | PC.NURSE ---
bedside sbar to [facility]
--- NOTE | 2020-05-26 19:04 | PC.NURSE ---
sbar to [facility]
== END 2020-05-26 19:06 | disposition short-term general hospital (02) ==
PROVIDERS: Emergency Provider Emergency Medicine; PCP Internal Medicine
DX: B17.10 Acute hepatitis C without hepatic coma (principal); K74.60 Unspecified cirrhosis of liver; C76.2 Malignant neoplasm of abdomen; C78.7 Secondary malignant neoplasm of liver and intrahepatic bile duct; D72.829 Elevated white blood cell count, unspecified; R06.02 Shortness of breath; I10 Essential (primary) hypertension; R33.8 Other retention of urine
CPT/HCPCS: 36415; 51701; 71046; 74177; 80053; 81001; 83605; 84132; 85025; 85610; 85730; 87040; 93005; 96361; 96374; 96375; 99285; J1170; J2060; Q9967

== ENCOUNTER 2020-06-03 22:00 | Emergency (ER) | payer OTHER, MEDICAID, SELFPAY ==
[2020-06-03 22:09] VITALS: BP 126/85; PULSE 113; RESP 22; TEMP 37.1; O2SAT 98; BMI 11.7
--- NOTE | 2020-06-03 22:18 | DI.CT.S_ITS ---
PROCEDURE: CT ABDOMEN PELVIS W CON INDICATIONS: abdominal pain N/V TECHNIQUE: After the administration of intravenous contrast, 5 mm thick sections acquired from the diaphragm to the symphysis. 5 mm coronal and sagittal reformats were acquired. For radiation dose reduction, the following was used: automated exposure control, adjustment of mA and/or kV according to patient size. COMPARISON: [facility], CT, CT ABDOMEN PELVIS W CON, 05/26/2020, 15:26. [facility], CT, CT ANGIO CHEST PE PROTOCOL, 06/03/2020, 22:41. [facility], CT, CT ANGIO CHEST PE PROTOCOL, 04/20/2020, 22:47. FINDINGS: Image quality: Excellent. ABDOMEN: Lung bases: Small bilateral pleural effusions with associated atelectasis can be seen at the lung bases. The heart size is within normal limits. Solid organs: The liver demonstrates prominent size. There are numerous poorly enhancing liver masses seen, which measure up to 7 cm. Along the inferior margin of the liver, there is apparent enhancing material seen. The common bile duct is not well seen. Gallbladder is largely collapsed at the time of this study. Biliary system is non dilated. Pancreas enhances normally. Spleen is normal in size and enhancement. A few calcified granulomas can be seen within the spleen. No adrenal nodules. Kidneys demonstrate normal size and enhancement, without hydronephrosis. Peritoneum and bowel: Focal wall thickening can be seen within several areas of the colon, including within the distal transverse colon and the distal rectum. Areas of bowel wall thickening are seen within the small bowel as well, primarily on the left side. No free air. Mild ascites is seen. Nodes and vessels: There is portal vein thrombosis, with expansion. Collaterals are seen adjacent to the portal vein. Prominent retroperitoneal lymph nodes are seen that measure up to 1.5 cm. Aorta and inferior vena cava are normal in size. Miscellaneous: No ventral hernias. PELVIS: Genitourinary: Bladder wall thickness is normal. Miscellaneous: No inguinal hernias or adenopathy. Bones: No suspicious bony lesions. No vertebral body compression fractures. Age-appropriate bony degenerative changes are seen, which are worst at the L5-S1 level. IMPRESSION: Numerous poorly enhancing liver masses are seen, which are similar to the prior examination. Portal vein thrombosis with expansion. Collateral circulation is seen. Peritoneal carcinomatosis, with abnormal enhancing soft tissue material along the inferior margin the liver. Mild ascites. Areas of bowel wall thickening are seen within the small bowel and within the colon, which are nonspecific. Incidental note is made of: Small bilateral pleural effusions, with atelectasis Prior granulomatous exposure. Focal L5-S1 degenerative change Note: No significant discrepancy from the preliminary report. Dictated by: Ramin Sheikh M.D. on 06/04/2020 at 9:15 Approved by: Ramin Sheikh M.D. on 06/04/2020 at 9:27
--- NOTE | 2020-06-03 22:30 | ED.SOB ---
HPI - SOB/Dyspnea General Chief Complaint: Shortness of Breath/Dyspnea Stated Complaint: sob, chest pains Time Seen by Provider: 06/03/20 22:00 Source: patient Mode of arrival: Ambulatory Limitations: no limitations History of Present Illness HPI Narrative: 54-year-old male smoker with former history of alcohol abuse and recent diagnosis of HCC, abdominal carcinomatosis and likely metastatic disease involving liver, and hep C presents with a chief complaint of a day or to progressive shortness of breath and anterior chest pain. He denies any obvious provocation, palliation or radiation of his pain. He states at times it is sharp and at other times more dull. He denies any fever chills. He denies any runny nose, sore throat or cough. He does have mild generalized abdominal discomfort and a recent hospitalization for the evaluation of the above diagnoses. He's had some diarrhea. Related Data Home Medications Medication Instructions Recorded Confirmed aspirin 81 mg tablet,delayed 81 mg PO DAILY 05/01/20 05/23/20 release Allergies Allergy/AdvReac Type Severity Reaction Status Date / Time lisinopril AdvReac Intermediate gas, Verified 06/03/20 22:09 cramping, dyspnea, near experience Review of Systems Constitutional Constitutional: Denies chills, Denies fatigue, Denies fever(s), Denies frequent falls, Denies lethargy and Denies weakness Eyes Eyes: Denies change in vision, Denies eye discharge, Denies irritation and Denies loss of vision ENT Ears, Nose, Mouth, and Throat: Denies change in voice, Denies dizziness, Denies neck pain, Denies sore throat and Denies throat swelling Cardiovascular Cardiovascular: Reports chest pain, Denies irregular heart rhythm, Denies lightheadedness, Denies palpitations, Reports dyspnea, Reports dyspnea on exertion and Denies orthopnea Respiratory Respiratory: Denies cough, Reports dyspnea, Reports dyspnea on exertion and Denies wheezing Gastrointestinal Gastrointestinal: Reports abdominal pain, Denies change in bowel habits, Reports diarrhea, Denies nausea and Denies vomiting Musculoskeletal Musculoskeletal: Denies neck pain and Denies numbness Integumentary/Breasts Skin/Breast: Denies pruritus, Denies erythema, Denies rash and Denies wounds Neurologic Neurologic: Denies behavioral changes, Denies confusion, Denies dizziness, Denies frequent falls, Denies loss of vision, Denies numbness and Denies weakness Psychiatric Psychiatric: Denies anxiety, Denies behavioral changes, Denies confusion, Denies depression, Denies homicidal ideation and Denies suicidal ideation Endocrine Endocrine: Denies fatigue, Denies flushing and Denies palpitations Hematologic/Lymphatic Hematologic/Lymphatic: Denies easy bruising Allergic/Immunologic Allergic/Immunologic: Denies urticaria, Denies throat swelling and Denies wheezing Patient History Medical History Cirrhosis of liver (Chronic) Essential hypertension (Chronic) Leukocytosis (Chronic) Microcytic anemia (Chronic) Surgical History S/P right rotator cuff repair (Acute) Family History Father Diabetes mellitus Stroke Mother Mini stroke Hypertension Hyperlipidemia Social History Smoking Status: Current every day smoker substance use type: marijuana Smoking Status: Current every day smoker alcohol intake frequency: a few times a month Substance Use Type: marijuana Exam Narrative Exam Narrative: GENERAL: [54] year old patient appears stated age. Thin, chronically ill. GCS 15. Poor historian HEAD: Atraumatic. Normocephalic. EYES: Pupils equal round and reactive. Extraocular motions intact. No scleral icterus. No injection or drainage. ENT: Nose without bleeding, purulent drainage. Throat without erythema, tonsillar hypertrophy or exudate. Airway patent. NECK: Trachea midline. Non tender CARDIOVASCULAR: Regular rate and rhythm without murmurs, gallops, or rubs. RESPIRATORY: Clear to auscultation. Breath sounds equal bilaterally. No wheezes, rales, or rhonchi. GASTROINTESTINAL: Abdomen soft, mild ascites, moderate pain in RUQ. Bowel sounds present in all 4 quadrants EXTREMITIES: No edema or joint tenderness. BACK: Nontender without deformity or crepitance. No flank tenderness. NEURO: AOx3. SKIN: No rash or erythema of visible areas Initial Vital Signs Initial Vital Signs: Vital Signs Temperature 98.7 F 06/03/20 22:09 Pulse Rate 113 H 06/03/20 22:09 Respiratory Rate 22 06/03/20 22:09 Blood Pressure 126/85 06/03/20 22:09 Pulse Oximetry 98 06/03/20 22:09 Course Course Course Narrative: Sepsis considered but thought unlikely given lack of suspicion of infection. WBCs chronically elevated. Normal lactate, no fever. SBP considered, but belly only tender in RUQ, no firm ascites. MELD Score (Model For End-Stage Liver Disease) (12 and older) from [employer] on 06/04/2020 All calculations should be rechecked by clinician prior to use RESULT SUMMARY: 19 points MELD Score (2016)* 6.0% Estimated 3-Month Mortality INPUTS: Dialysis at least twice in the past week ?> 0 = No Creatinine ?> 0.63 mg/dL Bilirubin ?> 2.3 mg/dL INR ?> 1.5 Sodium ?> 131 mEq/L Orders Ordered: ED Orders 06/03/20 22:15 C-Reactive Protein Quant Stat Complete Blood Count AUTO DIFF Stat Comprehensive Metabolic Panel Stat Ethanol (ETOH) Stat Ferritin Stat Lactate (Lactic Acid) Stat Lipase Stat Magnesium Stat NT-proBNP (BNP-Adult 18+) Stat Procalcitonin Stat Prothrombin Time INR Stat Troponin & CK Cardiac Panel Stat 06/03/20 22:18 CT angio chest PE protocol Stat 06/03/20 22:51 CT abdomen pelvis w con Stat 06/03/20 23:00 Blood Culture Stat 06/04/20 00:45 COVID19 -ED/INPAT/OR/L&D Stat Sodium Chloride (Normal Saline 0.9%) 1,000 mls @ 125 mls/hr IV CONT ABDIEL Last Admin: 06/03/20 22:39 Dose: 125 mls/hr Documented by: TING Discontinued Medications Diphenhydramine HCl (Benadryl) 25 mg IV NOW ONE Stop: 06/03/20 22:33 Last Admin: 06/03/20 22:38 Dose: 25 mg Documented by: TING Famotidine (Pepcid) 20 mg in 50 mls @ 200 mls/hr IV NOW ONE Stop: 06/03/20 22:47 Last Infusion: 06/03/20 23:22 Dose: 0 mls/hr Documented by: Admin: 06/03/20 22:39 Dose: 200 mls/hr Documented by: TING Ceftriaxone Sodium/Dextrose (Rocephin) 1 gm in 50 mls @ 100 mls/hr IV NOW ONE Stop: 06/04/20 02:02 Last Admin: 06/04/20 02:00 Dose: 100 mls/hr Documented by: CAL Methylprednisolone (Solu-Medrol 125 Mg Vial) 125 mg IV NOW ONE Stop: 06/03/20 22:33 Last Admin: 06/03/20 22:39 Dose: 125 mg Documented by: TING Consultations Consultation #1: call to [facility] to discuss new findings. They state that due to this progression of disease he is not appropriate for their facility and requests we call [facility] After discussion with Dr. Brown at [facility] she is happy to accept and requests we hold off on anticoagulation for now Vital Signs Vital signs: Vital Signs - 8 hr 06/03/20 22:09 06/03/20 23:56 06/04/20 00:00 Temperature 98.7 F Pulse Rate 113 H 102 H 99 H Respiratory Rate 22 18 20 Blood Pressure 126/85 130/81 122/77 Pulse Oximetry 98 97 95 06/04/20 00:30 Temperature Pulse Rate 100 H Respiratory Rate 25 H Blood Pressure 128/81 Pulse Oximetry 97 MDM - SOB/Dyspnea Lab Data Result diagrams: 06/03/20 22:15 06/03/20 22:15 Labs: Lab Results 06/03/20 06/03/20 06/03/20 Range/Units 22:15 22:15 22:15 WBC 23.5 H (4.5-11.0) X10^3/uL RBC 3.52 L (4.5-5.9) X10^6/uL Hgb 8.6 L (13.5-17.5) g/dL Hct 26.1 L (41-53) % MCV 74.1 L (80-100) fL MCH 24.3 L (26-34) PG MCHC 32.8 (30-36) % RDW 21.2 H (11.6-14.8) % Plt Count 608 H (150-400) X10^3/uL Neut % (Auto) 77.5 H (50-75) % Lymph % (Auto) 11.1 L (25-40) % [place] % (Auto) 9.0 (3-14) % Eos % (Auto) 1.8 L (2-4) % Baso % (Auto) 0.6 (0-2) % Neut # (Auto) 55753 H (1883-0844) /uL Lymph # (Auto) 2600 (2058-6476) /uL [place] # (Auto) 2100 H (0-900) /uL Eos # (Auto) 400 (0-450) /uL Baso # (Auto) 100 (0-100) /uL RBC Morphology See below Polychromasia 1+ H Anisocytosis 2+ H PT 16.6 H (10.1-12.7) SECONDS INR 1.5 H (0.9-1.3) Sodium (137-145) mmol/L Potassium (3.4-5.1) mmol/L Chloride (98-107) mmol/L Carbon Dioxide (22-32) mmol/L BUN (9-20) mg/dL Creatinine (0.66-1.25) mg/dL Estimated GFR (>60) mL/min BUN/Creatinine Ratio (6-22) Glucose (70-100) mg/dL Lactate (0.7-2.1) mmol/L Calcium (8.4-10.2) mg/dL Magnesium (1.6-2.3) mg/dL Ferritin (18-464) ng/mL Total Bilirubin (0.2-1.3) mg/dL AST (17-59) IU/L ALT (<50) IU/L Alkaline Phosphatase (38-126) U/L Total Creatine Kinase (55-170) U/L CK-MB (CK-2) (<2.37) ng/mL CK-MB (CK-2) Rel Index (1.5-5.0) % Troponin I (0.01-0.034) ng/mL C-Reactive Protein 15.6 H (<1.0) mg/dL NT-Pro-B Natriuret Pep (<125) pg/mL Total Protein (6.3-8.2) g/dL Albumin (3.5-5.0) g/dL Globulin (1.7-4.1) g/dL Albumin/Globulin Ratio (1.0-2.8) Lipase (23-300) U/L Procalcitonin (<0.5) ng/mL Ethyl Alcohol ( - 10) mg/dL COVID-19 PCR (Negative) 06/03/20 06/03/20 06/03/20 Range/Units 22:15 22:15 22:15 WBC (4.5-11.0) X10^3/uL RBC (4.5-5.9) X10^6/uL Hgb (13.5-17.5) g/dL Hct (41-53) % MCV (80-100) fL MCH (26-34) PG MCHC (30-36) % RDW (11.6-14.8) % Plt Count (150-400) X10^3/uL Neut % (Auto) (50-75) % Lymph % (Auto) (25-40) % [place] % (Auto) (3-14) % Eos % (Auto) (2-4) % Baso % (Auto) (0-2) % Neut # (Auto) (9957-0619) /uL Lymph # (Auto) (8592-7985) /uL [place] # (Auto) (0-900) /uL Eos # (Auto) (0-450) /uL Baso # (Auto) (0-100) /uL RBC Morphology Polychromasia Anisocytosis PT (10.1-12.7) SECONDS INR (0.9-1.3) Sodium 131 L (137-145) mmol/L Potassium 3.5 D (3.4-5.1) mmol/L Chloride 99 (98-107) mmol/L Carbon Dioxide 28 (22-32) mmol/L BUN 16 (9-20) mg/dL Creatinine 0.63 L (0.66-1.25) mg/dL Estimated GFR > 60.0 (>60) mL/min BUN/Creatinine Ratio 25.4 H (6-22) Glucose 106 H (70-100) mg/dL Lactate 0.9 (0.7-2.1) mmol/L Calcium 7.8 L (8.4-10.2) mg/dL Magnesium 1.7 (1.6-2.3) mg/dL Ferritin 1030 H (18-464) ng/mL Total Bilirubin 2.3 H (0.2-1.3) mg/dL AST 225 H (17-59) IU/L ALT 73 H (<50) IU/L Alkaline Phosphatase 578 H (38-126) U/L Total Creatine Kinase 124 (55-170) U/L CK-MB (CK-2) 0.66 (<2.37) ng/mL CK-MB (CK-2) Rel Index 0.5 L (1.5-5.0) % Troponin I < 0.012 (0.01-0.034) ng/mL C-Reactive Protein (<1.0) mg/dL NT-Pro-B Natriuret Pep 204 H (<125) pg/mL Total Protein 7.6 (6.3-8.2) g/dL Albumin 2.9 L (3.5-5.0) g/dL Globulin 4.7 H (1.7-4.1) g/dL Albumin/Globulin Ratio 0.6 L (1.0-2.8) Lipase 406 H (23-300) U/L Procalcitonin 0.63 H (<0.5) ng/mL Ethyl Alcohol ( - 10) mg/dL COVID-19 PCR (Negative) 06/03/20 06/04/20 Range/Units 22:15 00:45 WBC (4.5-11.0) X10^3/uL RBC (4.5-5.9) X10^6/uL Hgb (13.5-17.5) g/dL Hct (41-53) % MCV (80-100) fL MCH (26-34) PG MCHC (30-36) % RDW (11.6-14.8) % Plt Count (150-400) X10^3/uL Neut % (Auto) (50-75) % Lymph % (Auto) (25-40) % [place] % (Auto) (3-14) % Eos % (Auto) (2-4) % Baso % (Auto) (0-2) % Neut # (Auto) (3983-0909) /uL Lymph # (Auto) (5442-8132) /uL [place] # (Auto) (0-900) /uL Eos # (Auto) (0-450) /uL Baso # (Auto) (0-100) /uL RBC Morphology Polychromasia Anisocytosis PT (10.1-12.7) SECONDS INR (0.9-1.3) Sodium (137-145) mmol/L Potassium (3.4-5.1) mmol/L Chloride (98-107) mmol/L Carbon Dioxide (22-32) mmol/L BUN (9-20) mg/dL Creatinine (0.66-1.25) mg/dL Estimated GFR (>60) mL/min BUN/Creatinine Ratio (6-22) Glucose (70-100) mg/dL Lactate (0.7-2.1) mmol/L Calcium (8.4-10.2) mg/dL Magnesium (1.6-2.3) mg/dL Ferritin (18-464) ng/mL Total Bilirubin (0.2-1.3) mg/dL AST (17-59) IU/L ALT (<50) IU/L Alkaline Phosphatase (38-126) U/L Total Creatine Kinase (55-170) U/L CK-MB (CK-2) (<2.37) ng/mL CK-MB (CK-2) Rel Index (1.5-5.0) % Troponin I (0.01-0.034) ng/mL C-Reactive Protein (<1.0) mg/dL NT-Pro-B Natriuret Pep (<125) pg/mL Total Protein (6.3-8.2) g/dL Albumin (3.5-5.0) g/dL Globulin (1.7-4.1) g/dL Albumin/Globulin Ratio (1.0-2.8) Lipase (23-300) U/L Procalcitonin (<0.5) ng/mL Ethyl Alcohol < 10 ( - 10) mg/dL COVID-19 PCR Negative (Negative) Imaging Data CT scan - chest: Radiologist's Impression: No PE Age indeterminate thrombosis of the portal vein and central intrahepatic branches with adjacent collaterals ECG Data Attestation: I personally reviewed and interpreted this ECG as follows: Interpretation: EKG is sinus tachycardia with rate 112 and free of any signs of ischemia or ectopy. No ST segmental elevation or depression. No T wave inversions Critical Care Time Critical Care Time Critical Care Time: Yes Total Critical Care Time: 45 Attestation: The high probability of a clinically significant, sudden or life threatening deterioration of the [CV/GI] system(s) required my full and direct attention, intervention and personal management. The aggregate critical care time was [45] minutes. This time is in addition to time spent performing reported procedures but includes the following: [x] Data Review and interpretation [x] Patient assessment and monitoring of vital signs [x] Documentation [x] Medication orders and management Discharge Plan Departure Prescriptions: No Action aspirin 81 mg tablet,delayed release (DR/EC) 81 mg PO DAILY RF: 0
[2020-06-03] MEDS: diphenhydrAMINE 50 MG/ML VIAL 25 MG IV (22:38)
[2020-06-03] MEDS: methylPREDNISolone 125 MG/2 ML VIAL IV (22:39)
[2020-06-03] MEDS: FAMOTIDINE 20 MG/50 ML PIGGYBACK 200 MG IV (22:39)
[2020-06-03] MEDS: SODIUM CHLORIDE 0.9% 1,000 ML 125 ML IV (22:39)
[2020-06-03 22:42] LABS: INR 1.5 (0.9-1.3); Prothrombin Time 16.6 SECONDS (10.1-12.7)
[2020-06-03 22:45] LABS: Add Manual Diff / Slide Review NO; Basophils Absolute Auto 100 /uL (0-100); Basophils Percent Auto 0.6 % (0-2); Eosinophils Absolute Auto 400 /uL (0-450); Eosinophils Percent Auto 1.8 % (2-4); Ethanol (ETOH) < 10 mg/dL; Hematocrit 26.1 % (41-53); Hemoglobin 8.6 g/dL (13.5-17.5); Lymphocytes Absolute Auto 2600 /uL (1100-4500); Lymphocytes Percent Auto 11.1 % (25-40); Mean Corpuscular HGB Conc 32.8 % (30-36); Mean Corpuscular Hemoglobin 24.3 PG (26-34); Mean Corpuscular Volume 74.1 fL (80-100); Monocytes Absolute Auto 2100 /uL (0-900); Neutrophils Absolute Auto 18200 /uL (1500-7000); Neutrophils Percent Auto 77.5 % (50-75); Platelet Count 608 X10^3/uL (150-400); Red Blood Cell Count 3.52 X10^6/uL (4.5-5.9); Red Cell Distribution Width 21.2 % (11.6-14.8); White Blood Cell Count 23.5 X10^3/uL (4.5-11.0)
[2020-06-03 22:46] LABS: Alanine Aminotransferase 73 IU/L (<50); Albumin 2.9 g/dL (3.5-5.0); Albumin Globulin Ratio 0.6 (1.0-2.8); Alkaline Phosphatase 578 U/L (38-126); Aspartate Aminotransferase 225 IU/L (17-59); BUN Creatinine Ratio 25.4 (6-22); Bilirubin Total 2.3 mg/dL (0.2-1.3); Blood Urea Nitrogen 16 mg/dL (9-20); Calcium 7.8 mg/dL (8.4-10.2); Carbon Dioxide 28 mmol/L (22-32); Chloride 99 mmol/L (98-107); Creatine Kinase 124 U/L (55-170); Estimated Glomerular Filt Rate > 60.0 mL/min (>60); Globulin 4.7 g/dL (1.7-4.1); Glucose 106 mg/dL (70-100); HEMOLYSIS < 15 (0-50); Lipase 406 U/L (23-300); Magnesium 1.7 mg/dL (1.6-2.3); Potassium 3.5 mmol/L (3.4-5.1); Sodium 131 mmol/L (137-145); Total Protein 7.6 g/dL (6.3-8.2)
[2020-06-03 22:47] LABS: Lactate (Lactic Acid) 0.9 mmol/L (0.7-2.1)
--- NOTE | 2020-06-03 22:51 | DI.CT.S_ITS ---
PROCEDURE: CT ANGIO CHEST PE PROTOCOL INDICATIONS: Shortness of breath, Chest pain TECHNIQUE: After the administration of intravenous contrast, 2 mm thick sections acquired from the pulmonary apices to the posterior costophrenic angles. 3-dimensional maximum intensity projection (MIP) coronal and sagittal reformats were then acquired through the thorax. For radiation dose reduction, the following was used: automated exposure control, adjustment of mA and/or kV according to patient size. COMPARISON: [facility], CT, CT ABDOMEN PELVIS W CON, 06/03/2020, 22:41. [facility], CR, XR CHEST 2V, 05/26/2020, 14:48. [facility], CT, CT ANGIO CHEST PE PROTOCOL, 04/20/2020, 22:47. FINDINGS: Image quality: Excellent. Pulmonary arteries: Pulmonary arteries are normal in size, and demonstrate no intraluminal filling defects to suggest central pulmonary embolism. Lungs and pleura: There is a small right-sided pleural effusion. Associated right lower lobe atelectasis is seen. There is a trace left-sided pleural effusion, with associated atelectasis. Emphysematous changes are seen, with subpleural bleb formation. No pneumothorax is seen. Mediastinum: Heart size is normal, without pericardial effusion. No mediastinal or hilar adenopathy. Thoracic aorta is normal in caliber and enhancement. Esophagus is normal in caliber, without hiatal hernia. Bones and chest wall: No suspicious bony lesions. Ribs and thoracic spine appear intact throughout. Thyroid gland demonstrates no significant abnormality. No axillary or supraclavicular adenopathy. Abdomen: Liver masses are seen. Calcified granulomas are seen within the spleen. Ascites is seen. IMPRESSION: Negative for pulmonary embolism. Bilateral pleural effusions are seen, right greater than left, with overlying lower lobe atelectasis. Liver masses are seen. Mild ascites can be seen within the upper abdomen. Note: No significant discrepancy from the preliminary report. Dictated by: Ramin Sheikh M.D. on 06/04/2020 at 9:11 Approved by: Ramin Sheikh M.D. on 06/04/2020 at 9:14
[2020-06-03 22:58] LABS: NT-proBNP (BNP-Adult 18+) 204 pg/mL (<125); Procalcitonin 0.63 ng/mL (<0.5); Troponin I < 0.012 ng/mL (0.01-0.034)
[2020-06-03 22:59] LABS: C-Reactive Protein Quant 15.6 mg/dL (<1.0)
[2020-06-03 23:02] LABS: CKMB % Relative Index 0.5 % (1.5-5.0); Creatine Kinase MB 0.66 ng/mL (<2.37)
[2020-06-03 23:05] LABS: Anisocytosis 2+; Polychromasia 1+
[2020-06-03 23:56] VITALS: BP 130/81; PULSE 102; RESP 18; O2SAT 97
[2020-06-04] VITALS (10 sets, daily range): BP systolic 108–128; BP diastolic 69–81; PULSE 91–100; RESP 20–30; O2SAT 94–97
[2020-06-04 00:05] LABS: Ferritin 1030 ng/mL (18-464)
[2020-06-04 01:16] LABS: COVID19 -Nasal RAPID Negative (Negative)
[2020-06-04] MEDS: CEFTRIAXONE 1 GM/50 ML FROZ.PIGGY IV (02:00)
== END 2020-06-04 04:47 | disposition short-term general hospital (02) ==
PROVIDERS: Emergency Provider Emergency Medicine; PCP Internal Medicine
DX: I81 Portal vein thrombosis (principal); R06.00 Dyspnea, unspecified; R00.0 Tachycardia, unspecified; R06.02 Shortness of breath; R10.84 Generalized abdominal pain; R19.7 Diarrhea, unspecified; D72.829 Elevated white blood cell count, unspecified
CPT/HCPCS: 36415; 51798; 71275; 74177; 80053; 80320; 82550; 82553; 82728; 83605; 83690; 83735; 83880; 84145; 84484; 85025; 85610; 86140; 87040; 87635; 93005; 96361; 96365; 96367; 96375; 99285; 99291; J1200; J2930; Q9967

== ENCOUNTER → 2020-09-19 15:49 | Outpatient (CLI) | payer OTHER, MEDICAID, SELFPAY ==
--- NOTE | 2020-09-19 15:52 | DI.RAD.S_ITS ---
PROCEDURE: XR SHOULDER LT MIN 2V INDICATIONS: left shoulder pain TECHNIQUE: 3 views of the shoulder were acquired. COMPARISON: [facility], CR, XR CHEST 1 VIEW, 07/20/2020, 12:06. FINDINGS: Bones: No fractures or dislocations. No suspicious bony lesions. Visualized ribs appear intact. Severe acromioclavicular degenerative narrowing is present. Humeral head is mildly high-riding. Mild narrowing of the glenohumeral joint space is present. Soft tissues: No suspicious soft tissue calcifications. IMPRESSION: 1. Acromioclavicular and glenohumeral degenerative narrowing. 2. High riding appearance of the humeral head, which can be indicative of rotator cuff pathology. Dictated by: Margaux Rg M.D. on 09/19/2020 at 16:52 Approved by: Margaux Rg M.D. on 09/19/2020 at 16:52
== END ==
PROVIDERS: PCP Internal Medicine; Referring Provider Internal Medicine; Visit Provider Internal Medicine
DX: M25.512 Pain in left shoulder (principal); M89.8X2 Other specified disorders of bone, upper arm
CPT/HCPCS: 73030